=== PATIENT | male | born 1990 | race Two or more races ===

== ENCOUNTER 2016-07-05 13:55 | Observation (INO) | payer OTHER ==
[2016-07-05] MEDS ORDERED: LIDOCAINE VISCOUS 2% ORAL/TOP 20 ML UNIT-DOSE CUP MM ONE (14:53)
[2016-07-05] MEDS ORDERED: MAG HYDROX/AL HYDROX/SIMETH 30 ML UNIT-DOSE CUP PO ONE (14:53)
[2016-07-05] MEDS ORDERED: HYOSCYAMINE SULFATE 0.125 MG *ODT PO ONE (14:54)
[2016-07-05 15:02] LABS: BASOPHIL 0.9 % (0-2.0); EOSINOPHIL 0.8 % (0-4.5); MCH 30.4 pg (25.7-33.7); MCHC 33.4 g/dl (32.0-35.9); MEAN PLT VOLUME 7.5 fl (7.5-11.1); NEUTROPHILS 62.4 % (42.8-82.8); PLATELET COUNT 289 K/MM3 (134-434); RDW 13.3 % (11.9-15.9); WHITE BLOOD COUNT 8.3 K/mm3 (4.0-10.0)
--- NOTE | 2016-07-05 15:04 | PDOC ---
History of Present Illness - General Chief Complaint: Pain Stated Complaint: ABD PAIN/detox Time Seen by Provider: 07/05/16 14:30 History Source: Patient Exam Limitations: No Limitations - History of Present Illness Travel History: No Initial Comments: 07/05/16 14:54 26-year-old male presents to the ED with complaints of epigastric gnawing worsened in the a.m. hours accompanied with nausea and vomiting and relieved with marijuana smoking. Patient states the pain has increased over the past 6 months and feels he's been using marijuana excessively to control the nausea and vomiting which does alleviate his symptoms. Patient denies other drug use and denies any recent travel or recent change in diet. Patient states has not followed up with his PCP but was given a referral to Dr. Griffin but was unable to follow up since he lost his insurance that was accepted by Dr. Griffin. Timing/Duration: reports: intermittent Quality: reports: moderate, cramping Pain Radiation: reports: no radiation Aggravating Factors: improves with: None Alleviating Factors: improves with: Vomiting Past History - Past Medical History Allergies/Adverse Reactions: Allergies Allergy/AdvReac Type Severity Reaction Status Date / Time No Known Allergies Allergy Verified 07/05/16 14:17 Home Medications: Ambulatory Orders NK [No Known Home Medication] 07/05/16 Thyroid Disease: No - Psycho/Social/Smoking Cessation Hx Anxiety: No Suicidal Ideation: No Smoking History: Never smoked Have you smoked in the past 12 months: No Information on smoking cessation initiated: No Hx Alcohol Use: No Drug/Substance Use Hx: Yes (marijuana) Substance Use Type: Marijuana Patient Lives Alone: No Lives with/in: parents Review of Systems - Review of Systems Able to Perform ROS?: Yes Constitutional: No: Symptoms Reported HEENTM: No: Symptoms Reported Respiratory: No: Symptoms reported Cardiac (ROS): No: Symptoms Reported ABD/GI: Yes: Symptoms Reported, Nausea, Vomiting, Abdominal cramping. No: Poor Appetite, Poor Fluid Intake : No: Symptoms Reported Musculoskeletal: No: Symptoms Reported Integumentary: No: Symptoms Reported Neurological: No: Symptoms reported *Physical Exam - Vital Signs Last Vital Signs Temp Pulse Resp BP Pulse Ox 98.8 F 80 18 118/70 100 07/05/16 14:13 07/05/16 14:13 07/05/16 14:13 07/05/16 14:13 07/05/16 14:13 - Physical Exam General Appearance: Yes: Nourished, Appropriately Dressed. No: Apparent Distress HEENT: positive: EOMI, JOANN. negative: Pale Conjunctivae Neck: positive: Supple Respiratory/Chest: positive: Lungs Clear, Normal Breath Sounds. negative: Respiratory Distress, Accessory Muscle Use Cardiovascular: positive: Regular Rhythm, Regular Rate. negative: Murmur Gastrointestinal/Abdominal: positive: Normal Bowel Sounds, Soft, Tenderness ( mild epigastric, no right upper quadrant tenderness. No rebound or guarding). negative: Distended Musculoskeletal: negative: CVA Tenderness Extremity: positive: Normal Capillary Refill. negative: Pedal Edema Integumentary: positive: Normal Color, Warm, Moist Neurologic: positive: Motor Strength 5/5 (ambulatory) ED Treatment Course - LABORATORY CBC & Chemistry Diagram: 07/05/16 14:55 07/05/16 14:55 Medical Decision Making - Medical Decision Making 07/05/16 15:06 Patient with intermittent epigastric burning a followed by nausea and vomiting worse in the a.m. hours relief with marijuana usage but states symptoms also have worsened since he has been using more marijuana to control his vomiting. Patient with likely cyclic vomiting but will have labs including a lipase and be given at a GI cocktail. 07/05/16 15:37 Laboratory Tests 07/05/16 07/05/16 07/05/16 14:55 14:55 14:55 WBC 8.3 Hgb 15.1 Hct 45.3 Neutrophils % 62.4 Sodium 140 Potassium 4.2 Carbon Dioxide 30 Anion Gap 6 L BUN 12 Creatinine 1.0 Random Glucose 93 Calcium 9.4 Total Bilirubin 0.4 AST 18 ALT 21 Alkaline Phosphatase 93 Total Protein 7.8 Albumin 4.5 Lipase 1127 H Urine Ketones Negative Urine Nitrite Negative Ur Leukocyte Esterase Negative Opiates Screen Methadone Screen Barbiturate Screen Phencyclidine Screen Ur Amphetamines Screen MDMA (Ecstasy) Screen Benzodiazepines Screen Cocaine Screen U Marijuana (THC) Screen 07/05/16 14:55 WBC Hgb Hct Neutrophils % Sodium Potassium Carbon Dioxide Anion Gap BUN Creatinine Random Glucose Calcium Total Bilirubin AST ALT Alkaline Phosphatase Total Protein Albumin Lipase Urine Ketones Urine Nitrite Ur Leukocyte Esterase Opiates Screen Negative Methadone Screen Negative Barbiturate Screen Negative Phencyclidine Screen Negative Ur Amphetamines Screen Negative MDMA (Ecstasy) Screen Negative Benzodiazepines Screen Negative Cocaine Screen Negative U Marijuana (THC) Screen Positive Patient with elevated lipase. Patient did have epigastric pain on exam. Patient with a gallbladder ultrasound. 07/05/16 17:40 Ultrasound shows no discrete biliary calculus. The gallbladder appears unremarkable. There is no pericholecystic fluid. The common bile duct diameter appears within normal limits measuring 0.3 cm. No gross intraductal calculus and a 5. Liver and right kidney demonstrates no sonographic abnormalities. There is no free intraperitoneal fluid. Patient now concerning for pancreatitis. Patient be ordered for IV fluids and CT of the abdomen with IV contrast. Pt denies medication use, drug use, and heavy etoh use. Pt added for crp, amylase, and LDH. 07/05/16 18:13 Patient states physician is Dr. Bacon who does not admit here. 07/05/16 18:[address] Griffin who agrees pt needs admission. CT pending. Awaiting on-medicine Dr. Patel for callback. 07/05/16 19:19 Dr. Cabrales here for consultation. Dr. Murphycoaccepted to in [facility] *DC/Admit/Observation/Transfer Diagnosis at time of Disposition: Elevated lipase Pancreatitis Qualifiers: Pancreatitis type: unspecified pancreatitis type - Discharge Dispostion Admit: Yes
[2016-07-05 15:19] LABS: URINE APPEARANCE CLEAR; URINE BILIRUBIN NEGATIVE (NEGATIVE); URINE BLOOD NEGATIVE (NEGATIVE); URINE COLOR YELLOW; URINE GLUCOSE (UA) NEGATIVE (NEGATIVE); URINE KETONE NEGATIVE (NEGATIVE); URINE LEUK ESTERASE NEGATIVE (NEGATIVE); URINE NITRITE NEGATIVE (NEGATIVE); URINE PROTEIN NEGATIVE (NEGATIVE); URINE UROBILINOGEN NEGATIVE E.U./dl (0.2-1.0)
[2016-07-05 15:25] LABS: ALBUMIN 4.5 g/dl (3.4-5.0); ANION GAP 6 (8-16); CALCIUM 9.4 mg/dL (8.5-10.1); CO2 30 mmol/L (21-32); GLUCOSE,RANDOM 93 mg/dL (74-106)
[2016-07-05] MEDS ORDERED: MAG HYDROX/AL HYDROX/SIMETH 30 ML UNIT-DOSE CUP ONE (15:26)
[2016-07-05 15:28] LABS: ALK PHOS 93 U/L (45-117); BILIRUBIN,TOTAL 0.4 mg/dL (0.2-1.0); SGOT/AST 18 U/L (15-37); SGPT/ALT 21 U/L (12-78); TOT PROT 7.8 g/dl (6.4-8.2)
[2016-07-05 15:30] LABS: URINE MARIJUANA THC POSITIVE ng/ml (CUTOFF=50)
[2016-07-05] MEDS ORDERED: SODIUM CHLORIDE 1,000 ML IV STA ×2 (17:45)
[2016-07-05 19:13] LABS: AMYLASE 95 U/L (25-115); LDH 185 U/L (87-241)
--- NOTE | 2016-07-05 19:39 | CONSULT ---
Consult Consult Specialty:: GI Referred by:: Hospitalist Reason for Consultation:: Nausea and vomiting - History of Present Illness Chief Complaint: >1 year history of N/V which patient self-treats with marijuana. He smokes daily History of Present Illness: 26 M with no significant PMH, every-day marijuana smoker admitted for evaluation of abdominal pain and chronic N/V. He states he smokes marijuana to alleviate his symptoms but marijuana is the likely etiology of the problem. Patient, when questioned states that when he stops (max-4 days) he feels worse and winds up smoking again to relieve his symptoms. - History Source History Provided By: Patient Limitations to Obtaining History: No Limitations - Alcohol/Substance Use Hx Alcohol Use: No - Smoking History Smoking history: Never smoked Have you smoked in the past 12 months: No Home Medications - Allergies Allergies/Adverse Reactions: Allergies Allergy/AdvReac Type Severity Reaction Status Date / Time No Known Allergies Allergy Verified 07/05/16 14:17 - Home Medications Home Medications: Ambulatory Orders NK [No Known Home Medication] 07/05/16 Physical Exam-GI Vital Signs: Vital Signs Temperature 99.3 F 07/05/16 17:32 Pulse Rate 55 L 07/05/16 17:32 Respiratory Rate 18 07/05/16 17:32 Blood Pressure 110/49 07/05/16 17:32 O2 Sat by Pulse Oximetry (%) 99 07/05/16 17:32 Constitutional: Yes: Well Nourished, Calm HENT: Yes: Normocephalic Neck: Yes: Supple Cardiovascular: Yes: Regular Rate and Rhythm Respiratory: Yes: CTA Bilaterally Gastrointestinal Inspection: Yes: WNL ...Auscultate: Yes: Normoactive Bowel Sounds ...Palpate: Yes: Soft. No: Tenderness ...Percussion: Yes: Dullness Musculoskeletal: Yes: WNL Integumentary: Yes: Tattoos Neurological: Yes: WNL Labs: CBC, BMP 07/05/16 14:55 07/05/16 14:55 Hepatic Panel Total Bilirubin 0.4 mg/dL (0.2-1.0) 07/05/16 14:55 AST 18 U/L (15-37) 07/05/16 14:55 ALT 21 U/L (12-78) 07/05/16 14:55 Alkaline Phosphatase 93 U/L (45-117) 07/05/16 14:55 Albumin 4.5 g/dl (3.4-5.0) 07/05/16 14:55 Abnormal Lab Results 07/05/16 14:55 Anion Gap 6 L Lipase 1127 H Imaging - Results Cat Scan: Report Reviewed (Normal pancreas) Ultrasound: Report Reviewed (No significant abnormality) Assessment/Plan 26 M with long h/o abdominal discomfort and N/V came to ER for further evaluation. He has no signif PMH/PSH. Exam unremarkable, with no epigastric tenderness. Lipase noted to be 1121 with a normal amylase. Possibly gastric lipase secondary to vomiting. Recommend: Clear liquid diet Protonix Repeat lipase in AM May benefit from EGD prior to discharge. Follow clinical status.
[2016-07-05] MEDS ORDERED: PANTOPRAZOLE SODIUM 40 MG in SODIUM CHLORIDE 100 ML IVPB SCH (19:55)
[2016-07-05] MEDS ORDERED: PANTOPRAZOLE SODIUM 100 ML IVPB ONE ×2 (19:59→22:28)
[2016-07-05] MEDS ORDERED: PANTOPRAZOLE SODIUM 100 ML IVPB SCH (20:12)
--- NOTE | 2016-07-05 20:46 | PDOC ---
*Physical Exam - Vital Signs Last Vital Signs Temp Pulse Resp BP Pulse Ox 99.3 F 55 L 18 110/49 99 07/05/16 17:32 07/05/16 17:32 07/05/16 17:32 07/05/16 17:32 07/05/16 17:32 - Physical Exam Comments: 07/05/16 20:43 Sign-out received from outgoing ER provider Gemma. Pt interviewed and examined. Ancillary studies reviewed. Awaiting CT results. Patient has been admitted to inpatient service per MD Potts. CT results negative. Per GI consult [place], vomiting likely secondary to marijuana use. Per case management, at this time patient does not meet inpatient criteria but may be placed in obs. Case management has contacted MD Potts who accepts patient to med/surg for obs. Decision to admit changed to observation. ED Treatment Course - LABORATORY CBC & Chemistry Diagram: 07/05/16 14:55 07/05/16 14:55 - ADDITIONAL ORDERS Additional order review: Laboratory Results 07/05/16 07/05/16 07/05/16 18:19 18:19 14:55 Sodium Potassium Chloride Carbon Dioxide Anion Gap BUN Creatinine Creat Clearance w eGFR Random Glucose Calcium Total Bilirubin AST ALT Alkaline Phosphatase LD Total 185 C-Reactive Protein < 0.3 Total Protein Albumin Total Amylase 95 Lipase Urine Color Urine Appearance Urine pH Ur Specific Merkel Urine Protein Urine Glucose (UA) Urine Ketones Urine Blood Urine Nitrite Urine Bilirubin Urine Urobilinogen Ur Leukocyte Esterase Opiates Screen Negative Methadone Screen Negative Barbiturate Screen Negative Phencyclidine Screen Negative Ur Amphetamines Screen Negative MDMA (Ecstasy) Screen Negative Benzodiazepines Screen Negative Cocaine Screen Negative U Marijuana (THC) Screen Positive 07/05/16 07/05/16 14:55 14:55 Sodium 140 Potassium 4.2 Chloride 104 Carbon Dioxide 30 Anion Gap 6 L BUN 12 Creatinine 1.0 Creat Clearance w eGFR > 60 Random Glucose 93 Calcium 9.4 Total Bilirubin 0.4 AST 18 ALT 21 Alkaline Phosphatase 93 LD Total C-Reactive Protein Total Protein 7.8 Albumin 4.5 Total Amylase Lipase 1127 H Urine Color Yellow Urine Appearance Clear Urine pH 6.0 Ur Specific Merkel 1.026 Urine Protein Negative Urine Glucose (UA) Negative Urine Ketones Negative Urine Blood Negative Urine Nitrite Negative Urine Bilirubin Negative Urine Urobilinogen Negative Ur Leukocyte Esterase Negative Opiates Screen Methadone Screen Barbiturate Screen Phencyclidine Screen Ur Amphetamines Screen MDMA (Ecstasy) Screen Benzodiazepines Screen Cocaine Screen U Marijuana (THC) Screen 07/05/16 14:55 RBC 4.98 MCV 91.0 MCHC 33.4 RDW 13.3 MPV 7.5 Neutrophils % 62.4 Lymphocytes % 31.3 Monocytes % 4.6 Eosinophils % 0.8 Basophils % 0.9 - Medications Given in the ED: ED Medications Discontinued Medications Generic Name Dose Route Start Last Admin Trade Name Corazon PRN Reason Stop Dose Admin Al Hydroxide/Mg Hydroxide 30 ml 07/05/16 14:53 07/05/16 15:27 Mylanta Oral Suspension - PO 07/05/16 14:54 30 ml ONCE ONE Administration Hyoscyamine Sulfate 0.125 mg 07/05/16 14:54 07/05/16 15:27 Levsin Odt - PO 07/05/16 14:55 0.125 mg ONCE ONE Administration Sodium Chloride 1,000 mls @ 1,000 mls/hr 07/05/16 17:45 07/05/16 17:54 Normal Saline - IV 07/05/16 18:44 1,000 mls/hr ASDIR STA Administration Sodium Chloride 1,000 mls @ 1,000 mls/hr 07/05/16 17:45 07/05/16 17:57 Normal Saline - IV 07/05/16 18:44 1,000 mls/hr ASDIR STA Administration Pantoprazole Sodium 40 mg/ 100 mls @ 200 mls/hr 07/05/16 19:55 07/05/16 20:08 Sodium Chloride IVPB 200 mls/hr BID EVIN Administration Lidocaine HCl 15 ml 07/05/16 14:53 07/05/16 15:27 Xylocaine 2% Viscous Oral - MM 07/05/16 14:54 15 ml ONCE ONE Administration *DC/Admit/Observation/Transfer Diagnosis at time of Disposition: Elevated lipase Pancreatitis Qualifiers: Pancreatitis type: unspecified pancreatitis type
[2016-07-06 00:07] VITALS: BMI 31.9
[2016-07-06] MEDS ORDERED: ONDANSETRON 4 MG/2 ML VIAL IVPB PRN (03:35)
[2016-07-06] MEDS ORDERED: DEXTROSE 5%-0.45% SALINE 1,000 ML IV SCH (03:45)
[2016-07-06 08:05] LABS: BASOPHIL 0.5 % (0-2.0); EOSINOPHIL 1.4 % (0-4.5); MCH 30.7 pg (25.7-33.7); MCHC 33.5 g/dl (32.0-35.9); MEAN CELL VOLUME 91.7 fl (80-96); MEAN PLT VOLUME 7.7 fl (7.5-11.1); NEUTROPHILS 56.4 % (42.8-82.8); PLATELET COUNT 262 K/MM3 (134-434); RDW 13.1 % (11.9-15.9); WHITE BLOOD COUNT 6.3 K/mm3 (4.0-10.0)
[2016-07-06 08:21] LABS: ALK PHOS 82 U/L (45-117); ANION GAP 11 (8-16); BILIRUBIN,TOTAL 0.7 mg/dL (0.2-1.0); CALCIUM 8.9 mg/dL (8.5-10.1); CO2 26 mmol/L (21-32); CREATININE 0.9 mg/dL (0.7-1.3); GLUCOSE,RANDOM 97 mg/dL (74-106); SGOT/AST 18 U/L (15-37); SGPT/ALT 19 U/L (12-78)
[2016-07-06 08:36] VITALS: BP 113/53
[2016-07-06 08:38] LABS: AMYLASE 64 U/L (25-115)
[2016-07-06] MEDS ORDERED: PANTOPRAZOLE 40 MG TABLET (FP) PO SCH (10:00)
[2016-07-06 13:55] VITALS: PULSE 64; TEMP 98.1
--- NOTE | 2016-07-06 18:35 | HP ---
Admitting History and Physical - Admission History of Present Illness: 26-year-old male presents to the ED with complaints of epigastric gnawing worsened in the a.m. hours accompanied with nausea and vomiting and relieved with marijuana smoking. Patient states the pain has increased over the past 6 months and feels he's been using marijuana excessively to control the nausea and vomiting which does alleviate his symptoms. Patient denies other drug use and denies any recent travel or recent change in diet. History Source: Patient, Medical Record - Smoking History Smoking history: Never smoked Have you smoked in the past 12 months: No - Alcohol/Substance Use Hx Alcohol Use: No Home Medications - Allergies Allergies/Adverse Reactions: Allergies Allergy/AdvReac Type Severity Reaction Status Date / Time No Known Allergies Allergy Verified 07/05/16 14:17 - Home Medications Home Medications: Ambulatory Orders NK [No Known Home Medication] 07/05/16 Family Disease History - Family Disease History Family History: Unremarkable Review of Systems - Review of Systems Constitutional: reports: No Symptoms Eyes: reports: No Symptoms HENT: reports: No Symptoms Neck: reports: No Symptoms Cardiovascular: reports: No Symptoms Respiratory: reports: No Symptoms Physical Examination Vital Signs: Vital Signs Temperature 98.1 F 07/06/16 13:54 Pulse Rate 64 07/06/16 13:54 Respiratory Rate 18 07/06/16 13:54 Blood Pressure 113/53 07/06/16 08:00 O2 Sat by Pulse Oximetry (%) 99 07/06/16 09:00 Constitutional: Yes: No Distress Eyes: Yes: WNL HENT: Yes: WNL Neck: Yes: Supple Cardiovascular: Yes: WNL, Regular Rate and Rhythm Respiratory: Yes: WNL, Regular, CTA Bilaterally Gastrointestinal: Yes: WNL, Normal Bowel Sounds, Soft Musculoskeletal: Yes: WNL Extremities: Yes: WNL Edema: No Neurological: Yes: WNL, Alert, Oriented ...Motor Strength: WNL Labs: CBC, BMP 07/06/16 06:40 07/06/16 06:40 Problem List - Problems (1) Pancreatitis Assessment/Plan: Cont IVF Monitor labs GI consult Code(s): K85.9 - ACUTE PANCREATITIS, UNSPECIFIED * DO NOT USE * Qualifiers: Pancreatitis type: unspecified pancreatitis type
== END 2016-07-06 14:03 | disposition left against medical advice (07) ==
LOC: JER 13:55 → JERBED 15:00 → INTOOBSV 19:25 → UNDOADMOB 19:25 → J6S 23:39 → JERBED 23:39 → J6S 23:39 → UNDODISOB 07-06 14:03
PROVIDERS: ADMIT Internal Medicine; ATTEND Internal Medicine
DX: R11.2 Nausea with vomiting, unspecified (principal); R10.9 Unspecified abdominal pain; F12.90 Cannabis use, unspecified, uncomplicated
CPT/HCPCS: 36415; 74177-TC; 76705-TC; 80053; 80307; 81003; 82150; 83615; 83690; 85025; 86140; 99285-25; G0378

== ENCOUNTER 2018-02-20 21:10 | Emergency (ER) | payer OTHER ==
--- NOTE | 2018-02-20 21:43 | PDOC ---
Rapid Medical Evaluation Time Seen by Provider: 02/20/18 21:39 Medical Evaluation: Allergies Allergy/AdvReac Type Severity Reaction Status Date / Time No Known Allergies Allergy Verified 07/05/16 14:17 02/20/18 21:39 I have performed a brief in-person evaluation of this patient. The patient presents with a chief complaint of:left sided headache X 3 days, denies n/v Pertinent physical exam findings:none I have ordered the following:none The patient will proceed to the ED for further evaluation. Discharge Disposition - Diagnosis Headache Qualifiers: Headache type: unspecified Headache chronicity pattern: unspecified pattern Intractability: not intractable Qualified Code(s): R51 - Headache - Referrals - Patient Instructions - Post Discharge Activity
[2018-02-20 21:44] VITALS: BP 148/78; PULSE 82; TEMP 99.4; BMI 34.2
--- NOTE | 2018-02-20 22:32 | PDOC ---
History of Present Illness - General Chief Complaint: Headache Stated Complaint: HEADACHE Time Seen by Provider: 02/20/18 21:39 - History of Present Illness Initial Comments: 27-year-old male without comorbidities presents for evaluation of headache 4 days. He states his headache came on when he was vomiting because he wasn't feeling well and since that time his headache has been unresolved despite Tylenol and Motrin at home. He is unsure of any exacerbating or relieving factors he does get occasional headaches but not like this in the past. He has no other associated symptoms. 02/20/18 22:29 Past History - Past Medical History Allergies/Adverse Reactions: Allergies Allergy/AdvReac Type Severity Reaction Status Date / Time No Known Allergies Allergy Verified 02/20/18 21:39 Home Medications: Ambulatory Orders NK [No Known Home Medication] 07/05/16 COPD: No DVT: No Thyroid Disease: No - Immunization History Immunization Up to Date: Yes - Suicide/Smoking/Psychosocial Hx Smoking History: Never smoked Have you smoked in the past 12 months: No Hx Alcohol Use: No Drug/Substance Use Hx: No Substance Use Type: None Review of Systems - Review of Systems Neurological: Yes: Headache All Other Systems: Reviewed and Negative *Physical Exam - Vital Signs Last Vital Signs Temp Pulse Resp BP Pulse Ox 99.4 F 82 16 148/78 99 02/20/18 21:40 02/20/18 21:40 02/20/18 21:40 02/20/18 21:40 02/20/18 21:40 - Physical Exam Comments: HEAD: NC/AT, No meningismus EYES: Conjuntiva clear PERRL EOMI Ears: Canals and TM's normal NOSE: No d/c THROAT: Moist mucous membrances, oral pharanx clear, uvula midline NECK: Supple without adenopathy CARDIAC: S1 S2 LUNGS: CTA Full and Equal breath sounds ABDOMEN: Soft NT ND MS: Full ROM in all joints without edema NEUROLOGIC: No gross sensory or motor deficits, NVID SKIN: Normal color and temperature no lesions or rashes 02/20/18 22:30 ED Treatment Course - RADIOLOGY Radiology Studies Ordered: Category Date Time Status HEAD CT WITHOUT CONTRAST [CT] Stat CT Scan 02/20/18 22:29 Ordered Medical Decision Making - Medical Decision Making CT was normal headache relieved after Toradol 02/20/18 23:00 *DC/Admit/Observation/Transfer Diagnosis at time of Disposition: Headache Qualifiers: Headache type: unspecified Headache chronicity pattern: unspecified pattern Intractability: not intractable Qualified Code(s): R51 - Headache - Discharge Dispostion Disposition: HOME Condition at time of disposition: Improved Decision to Admit order: No - Referrals - Patient Instructions Printed Discharge Instructions: DI for Headache Additional Instructions: Return to the emergency room should symptoms come back. Otherwise follow-up with your primary care physician once 2 days for further evaluation and treatment options of her headaches. He may take Tylenol 2/ 500 mg tablets if you have a headache, if that does not help you in in our he may also take 3 Advil tablets now or later with food. Again you always have the option of returning to the emergency room if you are unable to get radicular headache. - Post Discharge Activity
[2018-02-20] MEDS ORDERED: KETOROLAC TROMETHAMINE 60 MG/2 ML VIAL IM ONE (22:54)
[2018-02-20] MEDS ORDERED: KETOROLAC TROMETHAMINE 60 MG/2 ML VIAL ONE (22:55)
== END 2018-02-20 23:02 | disposition home or self-care (01) ==
LOC: JERFT 21:10
PROC: 3E0233Z Introduction of Anti-inflammatory into Muscle, Percutaneous Approach (ICD-10-PCS; principal; 2018-02-20)
DX: R51 Headache (principal)
CPT/HCPCS: 70450-TC; 99281-25